=== PATIENT | female | born 1935 | race Caucasian/White ===

== ENCOUNTER 2019-05-10 17:14 | Emergency (ER) | payer OTHER ==
[~2019-05-10] VITALS: Ht 157.5 cm; Wt 63.7 kg
[~2019-05-10 17:14] MED LIST: IBUP-1542 PO
[2019-05-10 17:27] VITALS: Ht 157.5 cm; Wt 63.7 kg
[2019-05-10] MEDS ORDERED: ACETAMINOPHEN 325 MG TAB PO ONE (20:30)
[2019-05-10 22:15] VITALS: BP 136/55; PULSE 68; RESP 16
== END 2019-05-10 22:15 | disposition home or self-care (01) ==
LOC: E/R 17:14
DX: R42 Dizziness and giddiness (principal); I10 Essential (primary) hypertension; E11.9 Type 2 diabetes mellitus without complications
CPT/HCPCS: 70450; 72125; 73090; 81003; Z7502; Z7610